=== PATIENT | female | born 1995 | race Two or more races ===

== ENCOUNTER 2022-04-28 06:16 | Day surgery (SDC) | payer OTHER | END 2022-04-28 09:50 | disposition home or self-care (01) | LOC: AMB-ENDOS 06:16 | PROVIDERS: ATTEND Surgery | DX: K29.00 Acute gastritis without bleeding (principal); K44.9 Diaphragmatic hernia without obstruction or gangrene; I10 Essential (primary) hypertension; E66.8 Other obesity ==